=== PATIENT | female | born 1955 | race Caucasian/White ===

== ENCOUNTER → 2017-10-29 | Outpatient (CLI) | payer BC ==
--- NOTE | 2017-10-29 10:44 | BD ---
EXAMINATION TYPE: MG DEXA axial skeleton. DATE OF EXAM: 10/29/2017 COMPARISON: 02/11/2015 CLINICAL HISTORY: Postmenopausal female. Osteoporosis screening. Height: 64 IN Weight: 224 LBS FRAX RISK QUESTIONS: Alcohol (3 or more units per day): NO Family History (Parent hip fracture): YES MOTHER Glucocorticoids (More than 3mos): NO (Ex: prednisone, prednisolone, methylprednisolone, dexamethasone, and hydrocortisone). History of Fracture in Adulthood: NO Secondary Osteoporosis: 1. Type 1 Diabetes: NO 2. Hyperthyroidism: NO 3. Menopause before 45: NO 4. Malnutrition: NO 5. Chronic liver disease: NO Rheumatoid Arthritis: NO Current Tobacco Use: NO RISK FACTORS HISTORY OF: Active: YES Postmenopausal woman: AGE 47 MEDICATIONS: Thyroid Medications: YES Which medication: Levothyroxine How Lon+ YEARS Additional Medications: CALCIUM, LEVOTHYROXINE, GERD, CRESTOR EXAM MEASUREMENTS: Bone mineral densitometry was performed using the [employer] System. Bone mineral density as measured about the Lumbar spine is: ----- L1-L4(G/cm2): 1.031 T Score Values are as follows: ----- L2: -2.4 ----- L3: -1.0 ----- L4: -0.1 ----- L1-L4: -1.2 Bone mineral density has: Increased 3.2% since study of: 02/11/2015 Bone mineral density about the R hip (g/cm2): 0.852 Bone mineral density about the L hip (g/cm2): 0.878 T Score values are as follows: -----R Neck: -1.3 -----L Neck: -1.2 -----R Total: -0.9 -----L Total: -0.3 Bone mineral density has: Decreased -0.5% since study of: 02/11/2015 IMPRESSION: Osteopenia (T Score between -2.5 and -1 ) as noted by T score values with regards to both hips. There is slightly increased risk of fracture and the patient may be considered for treatment. Re-Screen 2-5 years. NOTE: T-SCORE=SD OF THE YOUNG ADULT MEAN.
--- NOTE | 2017-11-01 11:18 | MM ---
Reason for exam: screening (asymptomatic). Last mammogram was performed 1 year and 8 months ago. History: Patient is postmenopausal. Benign excisional biopsy of the left breast, 1989. Benign excisional biopsy of the left breast, 1988. Physical Findings: A clinical breast exam by your physician is recommended on an annual basis and results should be correlated with mammographic findings. MG Screening Mammo w CAD Bilateral CC and MLO view(s) were taken. Prior study comparison: March 04, 2016, bilateral MG screening mammo w CAD. February 15, 2015, left breast MG work up mamm w CAD LT. The breast tissue is heterogeneously dense. This may lower the sensitivity of mammography. There is no discrete abnormality. No significant changes when compared with prior studies. ASSESSMENT: Negative, BI-RAD 1 RECOMMENDATION: Routine screening mammogram of both breasts in 1 year.
== END | disposition home or self-care (01) ==
LOC: RADMAMWWP 06:45
PROVIDERS: ATTEND Obstetrics & Gynecology
DX: Z12.31 Encounter for screening mammogram for malignant neoplasm of breast (principal); M85.852 Other specified disorders of bone density and structure, left thigh; M85.851 Other specified disorders of bone density and structure, right thigh
CPT/HCPCS: 77067; 77080

== ENCOUNTER → 2018-02-04 | Outpatient (CLI) | payer BC ==
--- NOTE | 2018-02-06 13:23 | ECHOF ---
Referral Reason:I10 Essential Primary Hypertension MEASUREMENTS -------- HEIGHT: 162.6 cm WEIGHT: 106.6 kg BP: RVIDd: 3.3 cm (< 3.3) IVSd: 1.0 cm (0.6 - 1.1) LVIDd: 5.0 cm (3.9 - 5.3) LVPWd: 1.0 cm (0.6 - 1.1) IVSs: 1.4 cm LVIDs: 3.3 cm LVPWs: 1.3 cm LAESV Index (A-L): 37.83 ml/m Ao Diam: 2.9 cm (2.0 - 3.7) AV Cusp: 2.1 cm (1.5 - 2.6) LA Diam: 3.6 cm (2.7 - 3.8) EPSS: 0.2 cm MV E Sonny: 0.70 m/s MV DecT: 233 ms MV A Sonny: 0.79 m/s MV E/A Ratio: 0.89 RAP: 5.00 mmHg RVSP: 24.48 mmHg MV EF SLOPE: 100.60 mm/s (70 - 150) MV EXCURSION: 1.47 cm (> 18.000) FINDINGS -------- Sinus rhythm. This was a technically adequate study. The left ventricular size is normal. Left ventricular wall thickness is normal. Overall left vent ricular systolic function is normal with, an EF between 55 - 60 %. The right ventricle is normal in size and function. LA is moderately dilated 34-39 ml/m2 The right atrium is normal in size. Aortic valve is trileaflet and is mildly thickened. There is no evidence of aortic regurgitation. There is no evidence of aortic stenosis. The mitral valve leaflets are mildly thickened. Mild mitral regurgitation is present. Trace tricuspid regurgitation present. Right ventricular systolic pressure is normal at < 35 mmHg. There is no evidence of pulmonary hypertension. The pulmonic valve is normal. The aortic root size is normal. Normal inferior vena cava with normal inspiratory collapse consistent with estimated right atrial pre ssure of 5 mmHg. There is no pericardial effusion. CONCLUSIONS -------- 1. Sinus rhythm. 2. This was a technically adequate study. 3. The left ventricular size is normal. 4. Left ventricular wall thickness is normal. 5. Overall left ventricular systolic function is normal with, an EF between 55 - 60 %. 6. LA is moderately dilated 34-39 ml/m2 7. Aortic valve is trileaflet and is mildly thickened. 8. The mitral valve leaflets are mildly thickened. 9. Mild mitral regurgitation is present. 10. Trace tricuspid regurgitation present. 11. Right ventricular systolic pressure is normal at < 35 mmHg. 12. There is no evidence of pulmonary hypertension. 13. The aortic root size is normal. 14. There is no pericardial effusion. TYPESETTING MACHINE TENDER: Morgan Velez RDCS
== END | disposition home or self-care (01) ==
LOC: RADECHMAIN 14:45
PROVIDERS: ATTEND Family Medicine
DX: I08.0 Rheumatic disorders of both mitral and aortic valves (principal); I10 Essential (primary) hypertension
CPT/HCPCS: 93306

== ENCOUNTER 2019-07-12 08:43 | Day surgery (SDC) | payer MEDICARE, OTHER ==
[2019-07-10 15:43] VITALS: BMI 41.6
--- NOTE | 2019-07-12 08:21 | P.GSHP ---
History of Present Illness H&P Date: 07/12/19 CHIEF COMPLAINT: Colon screen HISTORY OF PRESENT ILLNESS: The patient is a 63-year-old female who presents for colon screen. Lower endoscopy was offered for further evaluation and management. PAST MEDICAL HISTORY: Please see list. PAST SURGICAL HISTORY: Please see list. MEDICATIONS: Please see list. ALLERGIES: Please see list. SOCIAL HISTORY: No illicit drug use FAMILY HISTORY: No reports of Crohn disease or ulcerative colitis. REVIEW OF ORGAN SYSTEMS: CONSTITUTIONAL: No reports of fevers or chills. PHYSICAL EXAM: VITAL SIGNS: Stable GENERAL: Well-developed pleasant in no acute distress. HEENT: No scleral icterus. Extraocular movements grossly intact. Moist buccal mucosa. NECK: Supple without lymphadenopathy. CHEST: Unlabored respirations. Equal bilateral excursions. CARDIOVASCULAR: Regular rate and rhythm. Distal 2+ pulses. ABDOMEN: Soft, nontender, nondistended. MUSCULOSKELETAL: No clubbing, cyanosis, or edema. ASSESSMENT: 1. Colon screen. PLAN: 1. Recommend proceeding with a lower endoscopy Past Medical History Past Medical History: Cancer, GERD/Reflux, Hyperlipidemia, Hypertension, Thyroid Disorder Additional Past Medical History / Comment(s): HX SKIN CANCER LT ARM History of Any Multi-Drug Resistant Organisms: None Reported Past Surgical History: Tubal Ligation Additional Past Surgical History / Comment(s): REMOVAL MELANOMA LT ARM. COLONOSCOPY Past Anesthesia/Blood Transfusion Reactions: No Reported Reaction Smoking Status: Never smoker - Past Family History Mother Family Medical History: No Reported History Medications and Allergies Home Medications Medication Instructions Recorded Confirmed Type Rosuvastatin Calcium [Crestor] 20 mg PO HS 10/19/14 07/10/19 History Cholecalciferol [Vitamin D3 (25 2,000 unit PO DAILY 07/10/19 07/10/19 History Mcg = 1000 Iu)] Levothyroxine Sodium 88 mcg PO DAILY 07/10/19 07/10/19 History Lisinopril [Zestril] 10 mg PO HS 07/10/19 07/10/19 History Magnesium Oxide [Mag-Ox] 400 mg PO DAILY 07/10/19 07/10/19 History Pantoprazole [Protonix] 40 mg PO DAILY 07/10/19 07/10/19 History Ubidecarenone [Co Q-10] 200 mg PO DAILY 07/10/19 07/10/19 History Allergies Allergy/AdvReac Type Severity Reaction Status Date / Time No Known Allergies Allergy Verified 07/10/19 15:33
[~2019-07-12 08:43] MED LIST: LACTATED RINGERS 1,000 ML IV SCH; LIDOCAINE 1% 20 ML VIAL (10MG/ML) FOR IV START INTRADERMA PRN
[2019-07-12 09:17] VITALS: RESP 16; TEMP 97.5
[2019-07-12] MEDS ORDERED: PROPOFOL 10 MG/ML 20 ML VIAL IV ONE (09:43)
--- NOTE | 2019-07-12 10:18 | P.PCN ---
Date of Procedure: 07/12/19 Description of Procedure: PREOPERATIVE DIAGNOSIS: History of positive stool assay testing, Cologuard POSTOPERATIVE DIAGNOSIS: History of positive stool assay testing, Cologuard Cecal tubular adenoma External hemorrhoids, grade 2 Sigmoid diverticulosis, moderate OPERATION: Colonoscopy to the ileocecal valve and appendiceal orifice. Colonoscopy with cold forceps biopsy SURGEON: Heather Vásquez MD. ANESTHESIA: MAC. INDICATIONS: The patient is a 63-year-old female who presents with positive stool assay testing for colon adenoma. Benefits and risks were described and informed consent was obtained. DESCRIPTION OF PROCEDURE: The patient had undergone Suprep. She had been brought into the operating room and laid in the left lateral decubitus position. After adequate intravenous sedation, the rectum was examined with 2% lidocaine jelly. External hemorrhoids were encountered. The rectal tone was within normal limits. No lesions were palpated in the rectal vault. The sigmoid colon was highly tortuous using adult colonoscope. The scope was switched for pediatric colonoscope. An Olympus c olonoscope was advanced until the ileocecal valve and appendiceal orifice were clearly viewed. The prep was good. A 3 mm colon adenoma was found along the cecum and removed with cold forceps biopsy. Severe redundant and sigmoid diverticulosis was encountered. No evidence of focal colitis was found. Retroflexion of the scope demonstrated grade 2 internal hemorrhoids without active bleeding or inflammation. The colon was desufflated. The patient had tolerated the procedure well. Withdrawal time was over 6 minutes. FINDINGS: Aronchick preparation quality scale 1 (1-5) Internal hemorrhoids, grade 2 External hemorrhoids, grade 2. No arteriovenous malformations. Severe sigmoid diverticulosis with redundancy Removal of 1 polyps: - Cold forceps biopsy at cecum 3 mm polyp. No focal colitis. RECOMMENDATIONS: Repeat colonoscopy in 3 years, 2021 Plan - Discharge Summary Discharge Rx Participant: No New Discharge Prescriptions: No Action Rosuvastatin Calcium [Crestor] 20 mg PO HS Magnesium Oxide [Mag-Ox] 400 mg PO DAILY Cholecalciferol [Vitamin D3 (25 Mcg = 1000 Iu)] 2,000 unit PO DAILY Lisinopril [Zestril] 10 mg PO HS Ubidecarenone [Co Q-10] 200 mg PO DAILY Pantoprazole [Protonix] 40 mg PO DAILY Levothyroxine Sodium 88 mcg PO DAILY Discharge Medication List Rosuvastatin Calcium [Crestor] 20 mg PO HS 10/19/14 [History] Cholecalciferol [Vitamin D3 (25 Mcg = 1000 Iu)] 2,000 unit PO DAILY 07/10/19 [History] Levothyroxine Sodium 88 mcg PO DAILY 07/10/19 [History] Lisinopril [Zestril] 10 mg PO HS 07/10/19 [History] Magnesium Oxide [Mag-Ox] 400 mg PO DAILY 07/10/19 [History] Pantoprazole [Protonix] 40 mg PO DAILY 07/10/19 [History] Ubidecarenone [Co Q-10] 200 mg PO DAILY 07/10/19 [History] Follow up Appointment(s)/Referral(s): Heather Vásquez MD [STAFF PHYSICIAN] - As Needed Patient Instructions/Handouts: Diverticulosis Diet (GEN), Diverticulosis (ED), Colorectal Polyps (DC) Activity/Diet/Wound Care/Special Instructions: Repeat colonoscopy 3 years, 2021 Discharge Disposition: HOME SELF-CARE
[2019-07-12 10:28] VITALS: BP 127/90; PULSE 72
== END 2019-07-12 10:45 | disposition home or self-care (01) ==
LOC: ORWHC2ENDO 08:43
PROVIDERS: ATTEND Surgery Plastic and Reconstructive Surgery
DX: D12.0 Benign neoplasm of cecum (principal); K64.1 Second degree hemorrhoids; K57.30 Diverticulosis of large intestine without perforation or abscess without bleeding; K63.89 Other specified diseases of intestine; I10 Essential (primary) hypertension; K21.9 Gastro-esophageal reflux disease without esophagitis; E78.5 Hyperlipidemia, unspecified; E07.9 Disorder of thyroid, unspecified; E66.01 Morbid (severe) obesity due to excess calories; Z79.890 Hormone replacement therapy; Z79.899 Other long term (current) drug therapy; Z85.828 Personal history of other malignant neoplasm of skin; Z98.51 Tubal ligation status; Z98.890 Other specified postprocedural states; Z68.41 Body mass index [BMI] 40.0-44.9, adult
CPT/HCPCS: 88305; 45380; J2704

== ENCOUNTER → 2019-11-06 | Outpatient (CLI) | payer MEDICARE, OTHER ==
--- NOTE | 2019-11-06 09:27 | BD ---
EXAMINATION TYPE: Axial Bone Density DATE OF EXAM: 11/06/2019 COMPARISON: 2018 CLINICAL HISTORY: M [age] Nuclear Medicine Study in the last 2 weeks: Barium Study in the last week: : Height: Weight: FRAX RISK QUESTIONS: Alcohol (3 or more units per day): NO Family History (Parent hip fracture): NO Glucocorticoids (More than 3mos): NO (Ex: prednisone, prednisolone, methylprednisolone, dexamethasone, and hydrocortisone). History of Fracture in Adulthood: NO Secondary Osteoporosis: 1. Type 1 Diabetes: NO 2. Hyperthyroidism: NO 3. Menopause before 45: NO 4. Malnutrition: NO 5. Chronic liver disease: NO Rheumatoid Arthritis: NO Current Tobacco Use: DELLA RISK FACTORS HISTORY OF: Active: NO Postmenopausal woman: AGE 47 MEDICATIONS: Thyroid Medications: YES Which medication: LEVOTHYROXINE How Lon-5 YEARS Additional Medications: LEVOTHYROXINE,PANTORAZOLE,LISINOPRIL, ROSUVASTATIN, D3, MAGNESIUM, COENZYME Additional History: EXAM MEASUREMENTS: Bone mineral densitometry was performed using the [employer] System. Bone mineral density as measured about the Lumbar spine is: ----- L1-L4(G/cm2): 0.982 T Score Values are as follows: ----- L2: -2.4 ----- L3: -0.9 ----- L4: -1.1 ----- L1-L4: -1.6 Bone mineral density has: DECREASED -3.8 % since study of: 2017 Bone mineral density about the R hip (g/cm2): 0.835 Bone mineral density about the L hip (g/cm2): 0.863 T Score values are as follows: -----R Neck: -1.5 -----L Neck: -1.3 -----R Total: -1.0 -----L Total: -0.3 Bone mineral density has: DECREASED -0.8 % since study of: 2017 IMPRESSION: Osteopenia (T Score between -2.5 and -1). There is slightly increased risk of fracture and the patient may be considered for treatment. Re-Screen 2-5 years. NOTE: T-SCORE=SD OF THE YOUNG ADULT MEAN.
--- NOTE | 2019-11-06 10:45 | MM ---
Reason for exam: screening (asymptomatic). Last mammogram was performed 2 years ago. History: Patient is postmenopausal and has history of other cancer at age 64. Benign excisional biopsy of the left breast, 1989. Benign excisional biopsy of the left breast, 1988. Physical Findings: A clinical breast exam by your physician is recommended on an annual basis and results should be correlated with mammographic findings. MG 3D Screening Mammo W/Cad Bilateral CC and MLO view(s) were taken. Prior study comparison: October 29, 2017, bilateral MG screening mammo w CAD. March 04, 2016, bilateral MG screening mammo w CAD. The breast tissue is heterogeneously dense. This may lower the sensitivity of mammography. No suspicious abnormality. No significant changes when compared with prior studies. ASSESSMENT: Negative, BI-RAD 1 RECOMMENDATION: Routine screening mammogram of both breasts in 1 year.
== END | disposition home or self-care (01) ==
LOC: RADMAMWWP 08:09
PROVIDERS: ATTEND Obstetrics & Gynecology
DX: Z12.31 Encounter for screening mammogram for malignant neoplasm of breast (principal); M85.88 Other specified disorders of bone density and structure, other site
CPT/HCPCS: 77063; 77067; 77080

== ENCOUNTER → 2020-12-25 | Outpatient (CLI) | payer MEDICARE ==
--- NOTE | 2020-12-27 09:56 | MM ---
Reason for exam: screening (asymptomatic). Last mammogram was performed 1 year and 2 months ago. History: Patient is postmenopausal and has history of other cancer at age 64. Benign excisional biopsy of the left breast, 1989. Benign excisional biopsy of the left breast, 1988. Physical Findings: A clinical breast exam by your physician is recommended on an annual basis and results should be correlated with mammographic findings. MG 3D Screening Mammo W/Cad Bilateral CC and MLO view(s) were taken. Prior study comparison: November 06, 2019, bilateral MG 3d screening mammo w/cad. October 29, 2017, bilateral MG screening mammo w CAD. The breast tissue is heterogeneously dense. This may lower the sensitivity of mammography. There is no discrete abnormality. No significant changes when compared with prior studies. ASSESSMENT: Negative, BI-RAD 1 RECOMMENDATION: Routine screening mammogram of both breasts in 1 year.
== END | disposition home or self-care (01) ==
LOC: RADMAMWWP 06:53
PROVIDERS: ATTEND Obstetrics & Gynecology
DX: Z12.31 Encounter for screening mammogram for malignant neoplasm of breast (principal); Z78.0 Asymptomatic menopausal state
CPT/HCPCS: 77063; 77067

== ENCOUNTER 2022-07-23 08:17 | Day surgery (SDC) | payer MEDICARE ==
[2022-07-22 08:18] VITALS: BMI 34.5
--- NOTE | 2022-07-23 07:41 | P.GSHP ---
History of Present Illness H&P Date: 07/23/22 CHIEF COMPLAINT: Colon screen HISTORY OF PRESENT ILLNESS: The patient is a 67-year-old female who presents for colon screen. Lower endoscopy was offered for further evaluation and management. PAST MEDICAL HISTORY: Please see list. PAST SURGICAL HISTORY: Please see list. MEDICATIONS: Please see list. ALLERGIES: Please see list. SOCIAL HISTORY: No illicit drug use FAMILY HISTORY: No reports of Crohn disease or ulcerative colitis. REVIEW OF ORGAN SYSTEMS: CONSTITUTIONAL: No reports of fevers or chills. PHYSICAL EXAM: VITAL SIGNS: Stable GENERAL: Well-developed pleasant in no acute distress. HEENT: No scleral icterus. Extraocular movements grossly intact. Moist buccal mucosa. NECK: Supple without lymphadenopathy. CHEST: Unlabored respirations. Equal bilateral excursions. CARDIOVASCULAR: Regular rate and rhythm. Distal 2+ pulses. ABDOMEN: Soft, nontender, nondistended. MUSCULOSKELETAL: No clubbing, cyanosis, or edema. ASSESSMENT: 1. Colon screen. PLAN: 1. Recommend proceeding with a lower endoscopy Past Medical History Past Medical History: Cancer, GERD/Reflux, Hyperlipidemia, Hypertension, Thyroid Disorder Additional Past Medical History / Comment(s): HX SKIN CANCER LT ARM History of Any Multi-Drug Resistant Organisms: None Reported Past Surgical History: Tubal Ligation Additional Past Surgical History / Comment(s): REMOVAL MELANOMA LT ARM. COLONOSCOPY Past Anesthesia/Blood Transfusion Reactions: No Reported Reaction Smoking Status: Never smoker - Past Family History Mother Family Medical History: CVA/TIA, Deep Vein Thrombosis (DVT) Additional Family Medical History / Comment(s): with CVA Medications and Allergies Home Medications Medication Instructions Recorded Confirmed Type Rosuvastatin Calcium [Crestor] 20 mg PO HS 10/19/14 07/22/22 History Cholecalciferol [Vitamin D3 (25 2,000 unit PO DAILY 07/10/19 07/22/22 History Mcg = 1000 Iu)] Levothyroxine Sodium 50 mcg PO QAM 07/10/19 07/22/22 History Magnesium Oxide [Mag-Ox] 500 mg PO DAILY 07/10/19 07/22/22 History Pantoprazole [Protonix] 40 mg PO QAM 07/10/19 07/22/22 History Ubidecarenone [Co Q-10] 100 mg PO DAILY 07/10/19 07/22/22 History Calcium Carbonate [Calcium] 1,200 mg PO DAILY 07/22/22 07/22/22 History Lisinopril-Hctz 10-12.5 mg 1 tab PO QAM 07/22/22 07/22/22 History [Zestoretic 10-12.5] Allergies Allergy/AdvReac Type Severity Reaction Status Date / Time No Known Allergies Allergy Verified 07/22/22 08:07
[~2022-07-23 08:17] MED LIST changes: -LIDOCAINE 1% 20 ML VIAL (10MG/ML) FOR IV START INTRADERMA PRN
[2022-07-23 08:37] VITALS: TEMP 97.4
[2022-07-23] MEDS ORDERED: LIDOCAINE 1% (10MG/ML) FOR IV START INTRADERMA ONE (08:49)
[2022-07-23] MEDS ORDERED: PROPOFOL 10 MG/ML 20 ML VIAL IV ONE (09:29)
[2022-07-23] MEDS ORDERED: GLYCOPYRROLATE 0.2 MG/ML 2 ML VIAL ONE (09:29)
--- NOTE | 2022-07-23 10:06 | P.PCN ---
Date of Procedure: 07/23/22 Description of Procedure: PREOPERATIVE DIAGNOSIS: Personal history colon polyps Colonoscopy screening. POSTOPERATIVE DIAGNOSIS: Personal history colon polyps Colonoscopy screening Severe sigmoid diverticulosis OPERATION: Colonoscopy to the cecum, ileocecal valve and appendiceal orifice. SURGEON: Heather Vásquez MD. ANESTHESIA: MAC. INDICATIONS: The patient is a 67-year-old female who presents for colonoscopy screening. Last colonoscopy 5 years ago. Benefits and risks were described and informed consent was obtained. DESCRIPTION OF PROCEDURE: The patient had undergone Sutab prep. The patient had been brought into the operating room and laid in the left lateral decubitus position. After adequate intravenous sedation, the rectum was examined with 2% lidocaine jelly. No external hemorrhoids were encountered. The rectal tone was within normal limits. No lesions were palpated in the rectal vault. An Olympus colonoscope was advanced until the cecum, ileocecal valve and appendiceal orifice were clearly viewed. The prep was excellent. Severe sigmoid diverticulosis was encountered. No colonic polyps were found. No evidence of focal colitis was found. Retroflexion of the scope demonstrated grade 1 internal hemorrhoids without active bleeding or inflammation. The colon was desufflated. The patient had tolerated the procedure well. Withdrawal time was over 6 minutes. FINDINGS: Aronchick preparation quality scale 1 (1-5) Internal hemorrhoids, grade 1 No external prolapsed hemorrhoids. No arteriovenous malformations. No adenomatous polyps. No focal colitis. Severe sigmoid diverticulosis requiring abdominal pressure Vasovagal response with abdominal wall pressure RECOMMENDATIONS: Lower endoscopy in 5 years, 2026 Plan - Discharge Summary Discharge Rx Participant: No New Discharge Prescriptions: Continue Rosuvastatin Calcium [Crestor] 20 mg PO HS Magnesium Oxide [Mag-Ox] 500 mg PO DAILY Cholecalciferol [Vitamin D3 (25 Mcg = 1000 Iu)] 2,000 unit PO DAILY Ubidecarenone [Co Q-10] 100 mg PO DAILY Pantoprazole [Protonix] 40 mg PO QAM Levothyroxine Sodium 50 mcg PO QAM Lisinopril-Hctz 10-12.5 mg [Zestoretic 10-12.5] 1 tab PO QAM Calcium Carbonate [Calcium] 1,200 mg PO DAILY Discharge Medication List Rosuvastatin Calcium [Crestor] 20 mg PO HS 10/19/14 [History] Cholecalciferol [Vitamin D3 (25 Mcg = 1000 Iu)] 2,000 unit PO DAILY 10/14/19 [History] Levothyroxine Sodium 50 mcg PO QAM 07/10/19 [History] Magnesium Oxide [Mag-Ox] 500 mg PO DAILY 07/10/19 [History] Pantoprazole [Protonix] 40 mg PO QAM 07/10/19 [History] Ubidecarenone [Co Q-10] 100 mg PO DAILY 07/10/19 [History] Calcium Carbonate [Calcium] 1,200 mg PO DAILY 07/22/22 [History] Lisinopril-Hctz 10-12.5 mg [Zestoretic 10-12.5] 1 tab PO QAM 07/22/22 [History] Follow up Appointment(s)/Referral(s): Heather Vásquez MD [STAFF PHYSICIAN] - As Needed Patient Instructions/Handouts: Diverticulosis Diet (GEN), Diverticulosis (DC) Activity/Diet/Wound Care/Special Instructions: Repeat colonoscopy in 5 years, 2026 Discharge Disposition: HOME SELF-CARE
[2022-07-23 10:20] VITALS: BP 108/74; PULSE 74; RESP 16
== END 2022-07-23 10:40 | disposition home or self-care (01) ==
LOC: ORWHC2ENDO 08:17
PROVIDERS: ATTEND Surgery Plastic and Reconstructive Surgery
DX: Z12.11 Encounter for screening for malignant neoplasm of colon (principal); K64.8 Other hemorrhoids; K57.30 Diverticulosis of large intestine without perforation or abscess without bleeding; Z86.010 Personal history of colon polyps; K21.9 Gastro-esophageal reflux disease without esophagitis; E78.5 Hyperlipidemia, unspecified; I10 Essential (primary) hypertension; E07.9 Disorder of thyroid, unspecified; Z98.51 Tubal ligation status; Z85.828 Personal history of other malignant neoplasm of skin; Z82.3 Family history of stroke; Z83.2 Family history of diseases of the blood and blood-forming organs and certain disorders involving the immune mechanism; Z79.890 Hormone replacement therapy; Z79.1 Long term (current) use of non-steroidal anti-inflammatories (NSAID); Z79.899 Other long term (current) drug therapy
CPT/HCPCS: G0105; J2704; 45378

== ENCOUNTER → 2022-10-30 | Outpatient (CLI) | payer MEDICARE ==
--- NOTE | 2022-10-30 08:29 | BD ---
EXAMINATION TYPE: Axial Bone Density DATE OF EXAM: 10/30/2022 COMPARISON: 11/06/2019 CLINICAL HISTORY: 67 years year old Female. ICD-10 CODE: Z78.0 ASYMPTOMATIC MENOPAUSAL STATE Height: 63 IN Weight: 209 LBS RISK FACTORS HISTORY OF: Active: YES Postmenopausal woman: AGE 47 MEDICATIONS: Thyroid Medications: YES Which medication: Levothyroxine How Lon+ YEARS Additional Medications: VIT D, LEVOTHYROXINE, COQ10, BLOOD PRESSURE MEDS, WATER PILL, MAGNESIUM, GERD MEDS, CALCIUM, LISINOPRIL, Additional History: MELANOMA EXAM MEASUREMENTS: Bone mineral densitometry was performed using the [employer] System. Bone mineral density as measured about the Lumbar spine is: ----- L1-L4(G/cm2): 0.991 T Score Values are as follows: ----- L1: -2.5 ----- L2: -2.2 ----- L3: -1.6 ----- L4: -0.5 ----- L1-L4: -1.6 Bone mineral density has: Increased 1.0% since study of: 11/06/2019 Bone mineral density about the R hip (g/cm2): 0.801 Bone mineral density about the L hip (g/cm2): 0.834 T Score values are as follows: -----R Neck: -1.7 -----L Neck: -1.5 -----R Total: -1.3 -----L Total: -0.7 Bone mineral density has: Decreased -4.3% since study of: 11/06/2019 FRAX%s: The graph provided illustrates a 9.5 %chance for a major osteoporotic fx and a 1.4 %chance fo r the hips probability for fx in 10 years time. IMPRESSION: Osteopenia (T Score between -2.5 and -1). There is slightly increased risk of fracture and the patient may be considered for treatment. Re-Screen 2-5 years. NOTE: T-SCORE=SD OF THE YOUNG ADULT MEAN.
== END | disposition home or self-care (01) ==
LOC: RADBDWWP 07:14
PROVIDERS: ATTEND Family Medicine
DX: M81.0 Age-related osteoporosis without current pathological fracture (principal); M85.89 Other specified disorders of bone density and structure, multiple sites; Z78.0 Asymptomatic menopausal state
CPT/HCPCS: 77080

== ENCOUNTER → 2023-01-04 | Outpatient (CLI) | payer MEDICARE ==
--- NOTE | 2023-01-05 09:58 | MM ---
Reason for Exam: Screening (asymptomatic). Last screening mammogram was performed 12 month(s) ago. Patient History: Menarche at age 13. First Full-Term at age 19. Postmenopausal. 1989, Benign Excisional Biopsy on the left side. 1988, Benign Excisional Biopsy on the left side. Risk Values: Chel 5 year model risk: 2.1%. NCI Lifetime model risk: 6.5%. Prior Study Comparison: 11/06/2019 Bilateral Screening Mammogram, [facility]. 12/25/2020 Bilateral Screening Mammogram, [facility]. 12/30/2021 Bilateral Screening Mammogram, [facility]. Tissue Density: There are scattered fibroglandular densities. Findings: Analyzed By CAD. There is no suspicious group of microcalcifications or new suspicious mass in either breast. Overall Assessment: Negative, BI-RAD 1 Management: Screening Mammogram of both breasts in 1 year. A clinical breast exam by your physician is recommended on an annual basis and results should be correlated with mammographic findings. [facility] will attempt to contact patient to return for supplemental views and ultrasound if indicated. Electronically signed and approved by: Jorje Quinteros DO
== END | disposition home or self-care (01) ==
LOC: RADMAMWWP 07:48
PROVIDERS: ATTEND Family Medicine
DX: Z12.31 Encounter for screening mammogram for malignant neoplasm of breast (principal); Z78.0 Asymptomatic menopausal state
CPT/HCPCS: 77063; 77067

== ENCOUNTER → 2024-01-06 | Outpatient (CLI) | payer MEDICARE ==
--- NOTE | 2024-01-11 11:01 | MM ---
Reason for Exam: Screening (asymptomatic). Last screening mammogram was performed 12 month(s) ago. Patient History: Menarche at age 13. First Full-Term at age 19. Postmenopausal. 1989, Benign Excisional Biopsy on the left side. 1988, Benign Excisional Biopsy on the left side. Risk Values: Chel 5 year model risk: 2.1%. NCI Lifetime model risk: 6.2%. Prior Study Comparison: 12/25/2020 Bilateral Screening Mammogram, [facility]. 12/30/2021 Bilateral Screening Mammogram, [facility]. 01/04/2023 Bilateral MG 3D screening mammo w/cad, [facility]. Tissue Density: There are scattered areas of fibroglandular density. Findings: Analyzed By CAD. Right breast: There is no suspicious group of microcalcifications or new suspicious mass. Left breast: There is no suspicious group of microcalcifications or new suspicious mass. Overall Assessment: Negative, BI-RAD 1 Management: Screening Mammogram of both breasts in [address] [facility] will attempt to contact patient to return for supplemental views and ultrasound if indicated. Patient should continue monthly self-breast exams. A clinical breast exam by your physician is recommended on an annual basis. This exam should not preclude additional follow-up of suspicious palpable abnormalities. Note on Chel scores and lifetime risk: 1. A Chel score greater than 3% is considered moderate risk. If this is the case, consider specialist referral to assess eligibility for a risk reducing agent. 2. If overall lifetime risk for the development of breast cancer is 20% or higher, the patient may qualify for future screening with alternating mammogram and breast MRI. Electronically signed and approved by: Jorje Quinteros DO
== END | disposition home or self-care (01) ==
LOC: RADMAMWWP 12:44
PROVIDERS: ATTEND Family Medicine
DX: Z12.31 Encounter for screening mammogram for malignant neoplasm of breast (principal); Z78.0 Asymptomatic menopausal state
CPT/HCPCS: 77063; 77067

== ENCOUNTER → 2025-01-08 | Outpatient (CLI) | payer MEDICARE ==
--- NOTE | 2025-01-08 07:55 | MM ---
Reason for Exam: Screening (asymptomatic). Last screening mammogram was performed 12 month(s) ago. Patient History: Menarche at age 13. First Full-Term at age 19. Postmenopausal. 1989, Benign Excisional Biopsy on the left side. 1988, Benign Excisional Biopsy on the left side. Risk Values: Chel 5 year model risk: 2.1%. NCI Lifetime model risk: 5.9%. Prior Study Comparison: 12/30/2021 Bilateral Screening Mammogram, [facility]. 01/04/2023 Bilateral MG 3D screening mammo w/cad, [facility]. 01/06/2024 Bilateral MG 3D screening mammo w/cad, [facility]. Tissue Density: There are scattered areas of fibroglandular density. Findings: Analyzed By CAD. Some vascular calcifications are seen bilaterally. There are a few scattered tiny round calcifications bilaterally. Benign-appearing right axillary lymph node is redemonstrated. There is no suspicious new group of microcalcifications or new suspicious mass in either breast. Overall Assessment: Benign, BI-RAD 2 Management: Screening Mammogram of both breasts in 1 year. . Patient should continue monthly self-breast exams. A clinical breast exam by your physician is recommended on an annual basis. This exam should not preclude additional follow-up of suspicious palpable abnormalities. Note on Chel scores and lifetime risk: 1. A Chel score greater than 3% is considered moderate risk. If this is the case, consider specialist referral to assess eligibility for a risk reducing agent. 2. If overall lifetime risk for the development of breast cancer is 20% or higher, the patient may qualify for future screening with alternating mammogram and breast MRI. [facility], , 01/08/2025 7:52 AM. Electronically signed and approved by: Tomas Meyers M.D.
--- NOTE | 2025-01-08 08:10 | BD ---
EXAMINATION TYPE: Axial Bone Density DATE OF EXAM: 01/08/2025 CLINICAL HISTORY: 69 years old Female. ICD-10 CODE: Z78.[address] , Additional Hi story: Height: 64 Weight: 216 FRAX RISK QUESTIONS: Family History (Parent hip fracture): no History of Fracture in Adulthood: no Secondary Osteoporosis: no RISK FACTORS HISTORY OF: Surgery to Spine/Hip(right/left)/Wrist (right/left): no MEDICATIONS: Thyroid Medications: no Which medication: Levothyroxine How Lon+ years Osteoporosis Medications: no EXAM MEASUREMENTS: Bone mineral densitometry was performed using the [employer] System. Bone mineral density as measured about the Lumbar spine is: ----- L1-L4(G/cm2): 1.095 T Score Values are as follows: ----- L1: -1.8 ----- L2: -1.9 ----- L3: -1.1 ----- L4: 1.8 ----- L1-L4: -0.7 Z Score Values are as follows: ----- L1: -1.2 ----- L2: -1.3 ----- L3: -0.5 ----- L4: 2.4 ----- L1-L4: -0.1 Bone mineral density has: Increased 6.8% since study of: 10/30/2022 Bone mineral density about the R hip (g/cm2): 0.848 Bone mineral density about the L hip (g/cm2): 0.938 T Score values are as follows: -----R Neck: -2.2 -----L Neck: -1.7 -----R Total: -1.3 -----L Total: -0.6 Z Score values are as follows: -----R Neck: -1.2 -----L Neck: -0.7 -----R Total: -0.5 -----L Total: 0.2 Bone mineral density has: Increased 0.8% since study of: 10/30/2022 FRAX%s: The graph provided illustrates a 12.2% chance for a major osteoporotic fx and a 2.7% chance f or the hips probability for fx in 10 years time. IMPRESSION: Osteopenia (T Score between -2.5 and -1) remains present. There remains slightly increased risk of fracture and the patient may be considered for treatment. Re-Screen 2-5 years. NOTE: T-SCORE=SD OF THE YOUNG ADULT MEAN. [facility], , 01/08/2025 8:08 AM
== END | disposition home or self-care (01) ==
LOC: RADMAMWWP 06:52
PROVIDERS: ATTEND Family Medicine
DX: Z12.31 Encounter for screening mammogram for malignant neoplasm of breast (principal); R92.323 Mammographic fibroglandular density, bilateral breasts; R92.1 Mammographic calcification found on diagnostic imaging of breast; M85.89 Other specified disorders of bone density and structure, multiple sites; Z78.0 Asymptomatic menopausal state
CPT/HCPCS: 77063; 77067; 77080